=== PATIENT | female | born 1965 | race Caucasian/White ===

== ENCOUNTER → 2017-08-14 | Outpatient (CLI) | payer BC | LOC: BMCIMAGING 16:14 | PROVIDERS: ATTEND Internal Medicine | DX: M25.551 Pain in right hip (principal) ==

== ENCOUNTER → 2017-08-28 | Outpatient (CLI) | payer BC | LOC: BMCIMAGING 15:05 | PROVIDERS: ATTEND Podiatrist Foot & Ankle Surgery | DX: M20.12 Hallux valgus (acquired), left foot (principal); M19.072 Primary osteoarthritis, left ankle and foot; M79.671 Pain in right foot ==

== ENCOUNTER → 2017-12-30 | Outpatient (CLI) | payer BC | LOC: BMCIMAGING 10:13 | PROVIDERS: ATTEND Podiatrist Foot & Ankle Surgery | DX: Z47.89 Encounter for other orthopedic aftercare (principal) ==

== ENCOUNTER → 2018-01-27 | Outpatient (CLI) | payer BC | LOC: BMCIMAGING 09:48 | PROVIDERS: ATTEND Podiatrist Foot & Ankle Surgery | DX: Z09 Encounter for follow-up examination after completed treatment for conditions other than malignant neoplasm (principal); Z98.890 Other specified postprocedural states; M79.89 Other specified soft tissue disorders ==

== ENCOUNTER → 2018-02-26 | Outpatient (CLI) | payer BC | LOC: BMCIMAGING 14:51 | PROVIDERS: ATTEND Podiatrist Foot & Ankle Surgery | DX: Z09 Encounter for follow-up examination after completed treatment for conditions other than malignant neoplasm (principal); M79.89 Other specified soft tissue disorders ==

== ENCOUNTER → 2018-03-05 | Outpatient (CLI) | payer BC | LOC: BMCIMAGING 15:58 | PROVIDERS: ATTEND Podiatrist Foot & Ankle Surgery | DX: Z47.89 Encounter for other orthopedic aftercare (principal) ==

== ENCOUNTER → 2018-03-23 | Outpatient (CLI) | payer BC | LOC: BMCIMAGING 11:23 | PROVIDERS: ATTEND Podiatrist Foot & Ankle Surgery | DX: Z47.89 Encounter for other orthopedic aftercare (principal) ==

== ENCOUNTER → 2018-04-09 | Outpatient (CLI) | payer BC | LOC: BMCIMAGING 15:44 | PROVIDERS: ATTEND Podiatrist Foot & Ankle Surgery | DX: Z09 Encounter for follow-up examination after completed treatment for conditions other than malignant neoplasm (principal); Z98.890 Other specified postprocedural states ==

== ENCOUNTER → 2018-04-20 | Outpatient (CLI) | payer BC | LOC: BMCIMAGING 10:15 → EDSTATUS 10:18 | PROVIDERS: ATTEND Podiatrist Foot & Ankle Surgery | DX: Z09 Encounter for follow-up examination after completed treatment for conditions other than malignant neoplasm (principal); Z98.890 Other specified postprocedural states; M19.072 Primary osteoarthritis, left ankle and foot ==

== ENCOUNTER → 2018-05-12 | Outpatient (CLI) | payer BC | LOC: BMCIMAGING 10:41 | PROVIDERS: ATTEND Podiatrist Foot & Ankle Surgery | DX: Z09 Encounter for follow-up examination after completed treatment for conditions other than malignant neoplasm (principal); Z98.890 Other specified postprocedural states ==

== ENCOUNTER → 2018-06-25 | Outpatient (CLI) | payer BC | LOC: BMCIMAGING 11:19 | PROVIDERS: ATTEND Podiatrist Foot & Ankle Surgery | DX: Z09 Encounter for follow-up examination after completed treatment for conditions other than malignant neoplasm (principal); Z98.890 Other specified postprocedural states ==

== ENCOUNTER → 2018-07-16 | Outpatient (CLI) | payer BC | LOC: BMCIMAGING 10:42 | PROVIDERS: ATTEND Podiatrist Foot & Ankle Surgery | DX: Z09 Encounter for follow-up examination after completed treatment for conditions other than malignant neoplasm (principal) ==

== ENCOUNTER → 2018-08-13 | Outpatient (CLI) | payer BC | LOC: BMCIMAGING 14:43 ==